=== PATIENT | female | born 1990 | race Caucasian/White ===

== ENCOUNTER 2018-04-19 17:00 | Emergency (ER) | payer OTHER ==
[~2018-04-19] VITALS: Ht 165.1 cm; Wt 61.7 kg
[2018-04-19] MEDS ORDERED: FLUOXETINE HCL40 MG ORAL (17:24)
[2018-04-19] MEDS ORDERED: LO LOESTRIN FE1 EAC1 PO (17:24)
[2018-04-19] MEDS ORDERED: IBUPROFEN600 MG ORAL (17:25)
[2018-04-19] MEDS ORDERED: BACTRIM-DS1 EA ORAL (17:25)
[2018-04-19 17:29] VITALS: BP 118/77
[2018-04-19] MEDS ORDERED: KENALOG 0.025%15 GM APPLIC (17:52)
[2018-04-19 18:13] VITALS: BP 118/77
--- NOTE | 2018-04-19 18:13 | Emergency Room Report ---
History of Present Illness General Chief Complaint: Skin Rash/Abscess Source: Patient Present Illness HPI Patient is a 28-year-old female who presented after increased rash to her lower extremities. The patient reportedly had been seen in urgent care. She had been started on intramuscular steroids and as well as Bactrim. The patient reports having recently gone hiking and had the development of lesions about 2 weeks later. The patient reports having the dog but does denies the dog having fleas. She reported having some increased itching to other areas. Allergies: Coded Allergies: No Known Allergies (Unverified , 04/19/18) Patient History Past Medical History: see triage record Last Menstrual Period: 03/29/18 Reviewed Nursing Documentation: PMH: Agreed; PSxH: Agreed Review of Systems All Other Systems: negative except mentioned in HPI Physical Exam Vital Signs Date Time Temp Pulse Resp B/P (MAP) Pulse Ox O2 Delivery O2 Flow Rate FiO2 04/19/18 17:19 98.2 84 19 119/77 94 Room Air 98.2 General Appearance: well appearing, no apparent distress, alert, GCS 15 Head: normocephalic, atraumatic ENT: hearing grossly normal, normal voice Neck: full range of motion, supple Respiratory: no respiratory distress, speaking full sentences Musculoskeletal: no calf tenderness Neurologic: normal inspection, alert, oriented x3, responsive, normal gait Psychiatric: mood/affect normal Skin: other - bullous rash to bilateral lower extremities, right greater than left Medical Decision Making Diagnostic Impression: Primary Impression: Contact dermatitis ER Course The patient presented for skin rash. The differential diagnosis included was not limited to contact dermatitis, allergic reaction to insect bite, a photosensitivity reaction, bullous impetigo, Gauthier-Bonifacio syndrome among others. Patient has a benign exam and does not appear to require any further imaging or laboratory testing at this time. The patient has what appears to be a allergic contact dermatitis. This is likely due to the plant toxin during hiking. The patient was advised wound care. The patient is advised follow-up with dermatology for recheck in the next few days. Patient is advised to return if any worsening condition or if any changes in status that are concerning. This report is dictated with [employer] assistant professor of dietetics software which may occasionally lead to discrepancies related to use of this software. Last Vital Signs Date Time Temp Pulse Resp B/P (MAP) Pulse Ox O2 Delivery O2 Flow Rate FiO2 04/19/18 17:29 98.2 74 19 118/77 99 Room Air 98.2 Status: improved Disposition: HOME, SELF-CARE Condition: Stable Scripts Triamcinolone Acet (Triamcinolone Acetonide) 15 Gm Cream..g. 15 GM APPLIC DAILY, #15 GM Prov: Guillermo Amado MD 04/19/18 Referrals: NON PHYSICIAN (PCP) Patient Instructions: Contact Dermatitis Guillermo Amado MD April 19, 2018 18:13
== END 2018-04-19 18:18 | disposition home or self-care (01) ==
LOC: EMR 17:56
DX: L25.9 Unspecified contact dermatitis, unspecified cause (principal)
CPT/HCPCS: 99283